=== PATIENT | female | born 1980 | race Two or more races ===

== ENCOUNTER → 2019-02-06 | Outpatient (CLI) | payer SELFPAY ==
[2019-02-06 10:24] LABS: HEMOGLOBIN 14.3 g/dL (12.0-15.0); MEAN CELL HGB 29.1 pg (26-34); MEAN CORP VOLUME 85.5 fL (78-100); MEAN PLATELET VOLUME 9.8 fL (7.8-11.0); RED CELL DISTRIBUTION WIDTH 13.2 % (11.5-14.5); WHITE BLOOD CELL 8.2 10^3/uL (4.5-11.0)
[2019-02-06 11:03] LABS: CALCIUM 8.9 mg/dL (8.4-10.5)
== END | disposition home or self-care (01) ==
LOC: LAB 10:00
PROVIDERS: ATTEND Nurse Practitioner Family
DX: E55.9 Vitamin D deficiency, unspecified (principal); E11.9 Type 2 diabetes mellitus without complications; I10 Essential (primary) hypertension
CPT/HCPCS: 36415; 80053; 80061; 82043; 82306; 83036; 83735; 84439; 84443; 85027

== ENCOUNTER → 2019-10-15 | Outpatient (CLI) | payer SELFPAY ==
[2019-10-15 09:30] LABS: MEAN CORP HGB 29.3 pg (26-34); RED CELL DISTRIBUTION WIDTH 12.7 % (11.5-14.5)
[2019-10-15 09:53] LABS: CARBON DIOXIDE 28.3 mmol/L (20.0-32)
[2019-10-15 09:54] LABS: CALCIUM 8.3 mg/dL (8.4-10.5)
== END | disposition home or self-care (01) ==
LOC: LAB 08:57
PROVIDERS: ATTEND Nurse Practitioner Family
DX: E55.9 Vitamin D deficiency, unspecified (principal); E11.9 Type 2 diabetes mellitus without complications; I10 Essential (primary) hypertension
CPT/HCPCS: 36415; 80053; 80061; 82043; 82306; 83036; 84439; 84443; 85027

== ENCOUNTER → 2020-02-24 | Outpatient (CLI) | payer SELFPAY ==
[2020-02-24 10:06] LABS: CALCIUM 8.7 mg/dL (8.4-10.5); CARBON DIOXIDE 28.2 mmol/L (20.0-32)
== END | disposition home or self-care (01) ==
LOC: LAB 09:27
PROVIDERS: ATTEND Nurse Practitioner Family
DX: E11.9 Type 2 diabetes mellitus without complications (principal)
CPT/HCPCS: 36415; 80048; 83036

== ENCOUNTER → 2020-06-25 | Outpatient (CLI) | payer SELFPAY ==
[2020-06-26 09:19] LABS: HEP A AB, IgM Negative (Negative)
== END | disposition home or self-care (01) ==
LOC: LAB 11:24
PROVIDERS: ATTEND Nurse Practitioner Family
DX: Z20.2 Contact with and (suspected) exposure to infections with a predominantly sexual mode of transmission (principal)
CPT/HCPCS: 36415; 80074; 86318; 86592

== ENCOUNTER → 2021-01-04 | Outpatient (CLI) | payer SELFPAY ==
[2021-01-04 10:31] LABS: MEAN CORP HGB 30.1 pg (26-34); RED CELL DISTRIBUTION WIDTH 12.6 % (11.5-14.5)
[2021-01-04 10:53] LABS: CALCIUM 8.7 mg/dL (8.4-10.5); CARBON DIOXIDE 27.3 mmol/L (20.0-32)
== END | disposition home or self-care (01) ==
LOC: LAB 10:00
PROVIDERS: ATTEND Nurse Practitioner Family
DX: E11.9 Type 2 diabetes mellitus without complications (principal)
CPT/HCPCS: 36415; 80053; 80061; 82043; 82306; 83036; 84439; 84443; 85027

== ENCOUNTER → 2021-07-29 | Outpatient (CLI) | payer SELFPAY ==
[2021-07-29 11:15] LABS: ALANINE AMINOTRANSFERASE(ML) 27 U/L (12-78); ALKALINE PHOSPHATASE 77 U/L (50-136); ASPARTATE AMINO TRANSFERASE 14 U/L (0-35); CALCIUM 8.9 mg/dL (8.4-10.5); CARBON DIOXIDE 29.3 mmol/L (20.0-32); GLUCOSE 185 mg/dL (70-110)
== END | disposition home or self-care (01) ==
LOC: LAB 10:09
PROVIDERS: ATTEND Nurse Practitioner Family
DX: E11.9 Type 2 diabetes mellitus without complications (principal); Z20.2 Contact with and (suspected) exposure to infections with a predominantly sexual mode of transmission
CPT/HCPCS: 36415; 80048; 80076; 83036; 86592; 86703; 87522